=== PATIENT | female | born 1965 | race Caucasian/White ===

== ENCOUNTER 2017-01-11 11:32 | Emergency (ER) | payer OTHER ==
--- NOTE | 2017-01-11 12:26 | ED ---
General Adult HPI - General Chief complaint: Urogenital Stated complaint: COUGHING, JEROD, POSS UTI Time Seen by Provider: 01/11/17 12:11 Source: patient, RN notes reviewed Mode of arrival: ambulatory Limitations: no limitations - History of Present Illness Initial comments: Patient 51-year-old female who presents emergency room today with chief complaint of symptoms of dysuria and possible urinary tract infection. She does admit that she's had symptoms on and off over the last 6 months. She states she was treated once with antibiotics. She states she is a daily drinker and believes that the antibiotics that were 4. Patient does admit to increased frequency with burning on urination. She denies any other complaints or symptoms at this time. Patient denies any recent fever, chills, shortness of breath, chest pain, back pain, abdominal pain, nausea or vomiting, numbness or tingling, constipation or diarrhea, headaches or visual changes, or any other complaints. - Related Data Home Medications Medication Instructions Recorded Confirmed HYDROcodone/APAP 10-325MG [[place] 1 tab PO Q8H PRN 01/11/17 01/11/17 10-325] Previous Rx's Medication Instructions Recorded Nitrofurantoin Monohyd/M-Cryst 100 mg PO Q12HR #14 cap 01/11/17 [Macrobid] Allergies Allergy/AdvReac Type Severity Reaction Status Date / Time No Known Allergies Allergy Verified 01/11/17 13:11 Review of Systems ROS Statement: Those systems with pertinent positive or pertinent negative responses have been documented in the HPI. ROS Other: All systems not noted in ROS Statement are negative. Past Medical History Additional Past Medical History / Comment(s): etoh abuse History of Any Multi-Drug Resistant Organisms: None Reported Past Surgical History: Orthopedic Surgery Additional Past Surgical History / Comment(s): wrist/arm surg Past Psychological History: Bipolar Smoking Status: Current every day smoker Past Alcohol Use History: Abuse, Daily Past Drug Use History: None Reported General Exam - General Exam Comments Initial Comments: General: The patient is awake and alert, in no distress, and does not appear acutely ill. Eye: Pupils are equal, round and reactive to light, extra-ocular movements are intact. No nystagmus. There is normal conjunctiva bilaterally. No signs of icterus. Ears, nose, mouth and throat: There are moist mucous membranes and no oral lesions. Neck: The neck is supple, there is no tenderness or JVD. Cardiovascular: There is a regular rate and rhythm. No murmur, rub or gallop is appreciated. Respiratory: Lungs are clear to auscultation, respirations are non-labored, breath sounds are equal. No wheezes, stridor, rales, or rhonchi. Gastrointestinal: Soft, non-distended, non-tender abdomen without masses or organomegaly noted. There is no rebound or guarding present. No CVA tenderness. Bowel sounds are unremarkable. Musculoskeletal: Normal ROM, no tenderness. Strength 5/5. Sensation intact. Pulses equal bilaterally 2+. Neurological: A&O x 3. CN II-XII intact, There are no obvious motor or sensory deficits. Coordination appears grossly intact. Speech is normal. Skin: Skin is warm and dry and no rashes or lesions are noted. Psychiatric: Cooperative, appropriate mood & affect, normal judgment. Limitations: no limitations Course Vital Signs 01/11/17 01/11/17 01/11/17 11:54 12:55 14:23 Temperature 98.5 F 98.6 F Pulse Rate 109 H 90 72 Respiratory 18 16 Rate Blood Pressure 134/76 136/71 O2 Sat by Pulse 97 100 Oximetry 01/11/17 01/11/17 14:34 15:30 Temperature 98.5 F Pulse Rate 74 84 Respiratory 18 Rate Blood Pressure 148/77 O2 Sat by Pulse 97 Oximetry Medical Decision Making - Medical Decision Making Patient's x-ray reviewed shows no sign of pneumonia. No other acute abnormalities. CT of the abdomen and pelvis reveals a ovarian cyst. She does admit that she's had these in the past. She admits to dysuria. States she's had burning on urination. Was discussed about cystitis. Her urinalysis shows 40 red cells. Remaining labs reviewed. She will be placed on antibiotics cover for cystitis. She is advised follow-up family doctor over the next 2 days return here to emergency room if any symptoms increase or worsen or for any other concerns. - Lab Data Result diagrams: 01/11/17 14:10 01/11/17 14:10 Lab Results 01/11/17 01/11/17 01/11/17 Range/Units 12:50 14:10 14:10 WBC 10.4 (3.8-10.6) k/uL RBC 4.72 (3.80-5.40) m/uL Hgb 16.0 (11.4-16.0) gm/dL Hct 46.2 H (34.0-46.0) % MCV 97.8 (80.0-100.0) fL MCH 33.9 (25.0-35.0) pg MCHC 34.7 (31.0-37.0) g/dL RDW 14.5 (11.5-15.5) % Plt Count 199 (150-450) k/uL Neutrophils % 77 % Lymphocytes % 14 % Monocytes % 6 % Eosinophils % 1 % Basophils % 1 % Neutrophils # 8.0 H (1.3-7.7) k/uL Lymphocytes # 1.5 (1.0-4.8) k/uL Monocytes # 0.6 (0-1.0) k/uL Eosinophils # 0.1 (0-0.7) k/uL Basophils # 0.1 (0-0.2) k/uL Sodium (137-145) mmol/L Potassium (3.5-5.1) mmol/L Chloride (98-107) mmol/L Carbon Dioxide (22-30) mmol/L Anion Gap mmol/L BUN (7-17) mg/dL Creatinine (0.52-1.04) mg/dL Est GFR (MDRD) Af Amer (>60 ml/min/1.73 sqM) Est GFR (MDRD) Non-Af (>60 ml/min/1.73 sqM) Glucose (74-99) mg/dL Calcium (8.4-10.2) mg/dL Total Bilirubin (0.2-1.3) mg/dL AST (14-36) U/L ALT (9-52) U/L Alkaline Phosphatase (38-126) U/L Total Creatine Kinase 92 (30-135) U/L CK-MB (CK-2) 1.7 (0.0-2.4) ng/mL CK-MB (CK-2) Rel Index 1.8 Troponin I <0.012 (0.000-0.034) ng/mL Total Protein (6.3-8.2) g/dL Albumin (3.5-5.0) g/dL Urine Color Yellow Urine Appearance Clear (Clear) Urine pH 5.5 (5.0-8.0) Ur Specific [place] 1.018 (1.001-1.035) Urine Protein Trace H (Negative) Urine Glucose (UA) Negative (Negative) Urine Ketones Negative (Negative) Urine Blood Moderate H (Negative) Urine Nitrite Negative (Negative) Urine Bilirubin Negative (Negative) Urine Urobilinogen <2.0 (<2.0) mg/dL Ur Leukocyte Esterase Negative (Negative) Urine RBC 48 H (0-5) /hpf Urine WBC 2 (0-5) /hpf Ur Squamous Epith Cells 2 (0-4) /hpf Urine Mucus Occasional H (None) /hpf 01/11/17 Range/Units 14:10 WBC (3.8-10.6) k/uL RBC (3.80-5.40) m/uL Hgb (11.4-16.0) gm/dL Hct (34.0-46.0) % MCV (80.0-100.0) fL MCH (25.0-35.0) pg MCHC (31.0-37.0) g/dL RDW (11.5-15.5) % Plt Count (150-450) k/uL Neutrophils % % Lymphocytes % % Monocytes % % Eosinophils % % Basophils % % Neutrophils # (1.3-7.7) k/uL Lymphocytes # (1.0-4.8) k/uL Monocytes # (0-1.0) k/uL Eosinophils # (0-0.7) k/uL Basophils # (0-0.2) k/uL Sodium 145 (137-145) mmol/L Potassium 4.3 (3.5-5.1) mmol/L Chloride 111 H (98-107) mmol/L Carbon Dioxide 23 (22-30) mmol/L Anion Gap 11 mmol/L BUN 13 (7-17) mg/dL Creatinine 0.60 (0.52-1.04) mg/dL Est GFR (MDRD) Af Amer >60 (>60 ml/min/1.73 sqM) Est GFR (MDRD) Non-Af >60 (>60 ml/min/1.73 sqM) Glucose 84 (74-99) mg/dL Calcium 9.6 (8.4-10.2) mg/dL Total Bilirubin 0.7 (0.2-1.3) mg/dL AST 36 (14-36) U/L ALT 41 (9-52) U/L Alkaline Phosphatase 140 H (38-126) U/L Total Creatine Kinase (30-135) U/L CK-MB (CK-2) (0.0-2.4) ng/mL CK-MB (CK-2) Rel Index Troponin I (0.000-0.034) ng/mL Total Protein 7.0 (6.3-8.2) g/dL Albumin 4.3 (3.5-5.0) g/dL Urine Color Urine Appearance (Clear) Urine pH (5.0-8.0) Ur Specific [place] (1.001-1.035) Urine Protein (Negative) Urine Glucose (UA) (Negative) Urine Ketones (Negative) Urine Blood (Negative) Urine Nitrite (Negative) Urine Bilirubin (Negative) Urine Urobilinogen (<2.0) mg/dL Ur Leukocyte Esterase (Negative) Urine RBC (0-5) /hpf Urine WBC (0-5) /hpf Ur Squamous Epith Cells (0-4) /hpf Urine Mucus (None) /hpf Disposition Clinical Impression: Cystitis, Cough Disposition: HOME SELF-CARE Condition: Good Instructions: Urinary Tract Infection in Women (ED) Additional Instructions: Please use medication as discussed. Please follow-up with family doctor in the next 2 days. Please return to emergency room if the symptoms increase or worsen or for any other concerns. Prescriptions: Nitrofurantoin Monohyd/M-Cryst [Macrobid] 100 mg PO Q12HR #14 cap Referrals: Alayna Burnham MD [Primary Care Provider] - 1-2 days Time of Disposition: 16:07
[2017-01-11 13:26] LABS: Appearance,Urine Clear (Clear); Bilirubin,Urine Negative (Negative); Glucose,Urine (UA) Negative (Negative); Ketones,Urine Negative (Negative); Leukocyte Esterase,Urine Negative (Negative); Mucus,Urine Occasional /hpf; Nitrite,Urine Negative (Negative); PH, Urine 5.5 (5.0-8.0); Particle Count 3511; Protein,Urine Trace (Negative); RBC,Urine 48 /hpf (0-5); Specific Gravity,Urine 1.018 (1.001-1.035); Squamous Epithelial Cell,Urine 2 /hpf (0-4); UA Billing (MACRO vs. MICRO) MICRO; Urobilinogen,Urine <2.0 mg/dL (<2.0); WBC,Urine 2 /hpf (0-5)
[2017-01-11] MEDS ORDERED: IPRATROPIUM-ALBUTEROL 3 ML NEB INHALATION STA (13:42)
[2017-01-11 14:27] LABS: Basophils # (A) 0.1 k/uL (0-0.2); Basophils % (A) 1 %; CHCM 34.9; Eosinophils # (A) 0.1 k/uL (0-0.7); Eosinophils % (A) 1 %; HCT 46.2 % (34.0-46.0); HDW 2.62; Luc % (Auto) 1; Lymphocytes # (A) 1.5 k/uL (1.0-4.8); Lymphocytes % (A) 14 %; MCH 33.9 pg (25.0-35.0); MCHC 34.7 g/dL (31.0-37.0); MCV 97.8 fL (80.0-100.0); Mean Platelet Volume 7.9; Monocytes # (A) 0.6 k/uL (0-1.0); Monocytes % (A) 6 %; Neutrophils % (A) 77 %; RBC 4.72 m/uL (3.80-5.40); RDW 14.5 % (11.5-15.5); WBC 10.4 k/uL (3.8-10.6); WBC (Perox) 9.72
[2017-01-11 14:36] LABS: ALT 41 U/L (9-52); AST 36 U/L (14-36); Alkaline Phosphatase 140 U/L (38-126); Anion Gap 11 mmol/L; Blood Urea Nitrogen 13 mg/dL (7-17); Calcium 9.6 mg/dL (8.4-10.2); Carbon Dioxide 23 mmol/L (22-30); Chloride 111 mmol/L (98-107); Glucose 84 mg/dL (74-99); Non-African American GFR(MDRD) >60 (>60 ml/min/1.73 sqM); Potassium 4.3 mmol/L (3.5-5.1); Sodium 145 mmol/L (137-145); Total Bilirubin 0.7 mg/dL (0.2-1.3)
[2017-01-11 14:45] LABS: Creatine Kinase 92 U/L (30-135)
[2017-01-11 14:58] LABS: Creatine Kinase MB 1.7 ng/mL (0.0-2.4); Troponin I <0.012 ng/mL (0.000-0.034)
--- NOTE | 2017-01-11 15:03 | XR ---
EXAMINATION TYPE: XR chest 2V DATE OF EXAM: 01/11/2017 COMPARISON: NONE HISTORY: Cough TECHNIQUE: Frontal and lateral views of the chest are obtained. FINDINGS: Heart and mediastinum are normal. Lungs are clear. Costophrenic angles are clear. There ar e no hilar masses. Bony thorax is intact. IMPRESSION: Normal chest
--- NOTE | 2017-01-11 15:50 | CT ---
EXAMINATION TYPE: CT abdomen pelvis wo con DATE OF EXAM: 01/11/2017 COMPARISON: NONE HISTORY: Hematuria and burning with urination. CT DLP: 315.60 mGycm Automated exposure control for dose reduction was used. TECHNIQUE: Helical acquisition of images was performed from the lung bases through the pelvis. FINDINGS: Lung bases are clear of consolidation. There is no pleural effusion. Liver shows no focal defect. Spleen and pancreas appear normal. Gallbladder appears normal. There is no adrenal mass. Kidneys have normal size and contour. There is no hydronephrosis. Ureters a re not dilated. Bladder distends smoothly. There is no retroperitoneal adenopathy. There is a 7 x 5 c m cyst in the pelvis on the right side. This is probably ovarian cyst. Appendix is not definitely seen. There is no sign of appendicitis. Fecal pattern is normal. There is no ascites. I see no bony destructive process. IMPRESSION: LARGE RIGHT OVARIAN CYST. NO SIGN OF APPENDICITIS. NO EVIDENCE OF RENAL OBSTRUCTION.
[2017-01-11 16:01] VITALS: BP 148/77; PULSE 84; RESP 18; TEMP 98.5
== END 2017-01-11 16:15 | disposition home or self-care (01) ==
LOC: EC 11:32
DX: N30.90 Cystitis, unspecified without hematuria (principal); R05 Cough; F17.200 Nicotine dependence, unspecified, uncomplicated
CPT/HCPCS: 36415; 71020; 74176; 80053; 81001; 82550; 82553; 84484; 85025; 87086; 93005; 94640; 99284

== ENCOUNTER 2017-03-05 08:55 | Emergency (ER) | payer MEDICARE, OTHER ==
[2017-03-05] MEDS ORDERED: ASPIRIN 81 MG CHEW PO STA (09:13)
[2017-03-05] MEDS ORDERED: KETOROLAC 30 MG/ML 1 ML VIAL IVP STA (09:13)
[2017-03-05] MEDS ORDERED: SODIUM CHLORIDE 0.9% 1,000 ML IV STA ×2 (09:13)
--- NOTE | 2017-03-05 09:18 | ED ---
Fall HPI - General Chief Complaint: Fall Stated Complaint: fall, knee pain Time Seen by Provider: 03/05/17 09:06 Source: patient, RN notes reviewed, old records reviewed Mode of arrival: wheelchair - History of Present Illness Initial Comments: This is a 51-year-old feel presenting to the emergency Department chief complaint of right hip, knee and foot pain after falling off the ladder. Patient reports she was standing approximately 5 feet high, when she fell off the ladder and landed on her right leg. Patient reports that she also some abrasions over her arms and legs but denies any arm, back or abdominal pain. Patient reports she did not hit her head she is not on any blood thinners. She is a smoker. She also reports that she's had chest pain intermittently for the past 6 weeks. Patient reports that it seems to calm and last for a few days and then will slowly subside. Patient states that she has no previous cardiac history. - Related Data Previous Rx's Medication Instructions Recorded Acetaminophen-Codeine 300-30mg 1 tab PO Q6H PRN #12 tablet 03/05/17 [Tylenol #3] Allergies Allergy/AdvReac Type Severity Reaction Status Date / Time No Known Allergies Allergy Verified 03/05/17 09:10 Review of Systems ROS Statement: Those systems with pertinent positive or pertinent negative responses have been documented in the HPI. ROS Other: All systems not noted in ROS Statement are negative. Past Medical History Past Medical History: Hypertension Additional Past Medical History / Comment(s): etoh abuse History of Any Multi-Drug Resistant Organisms: None Reported Past Surgical History: Orthopedic Surgery Additional Past Surgical History / Comment(s): wrist/arm surg left side Past Psychological History: Bipolar Smoking Status: Current every day smoker Past Alcohol Use History: Abuse, Daily Past Drug Use History: None Reported General Exam - General Exam Comments Initial Comments: This is a 51-year-old female. Patient does appear to be in some discomfort. Limitations: no limitations General appearance: alert, in no apparent distress Head exam: Present: atraumatic, normocephalic, normal inspection Eye exam: Present: normal appearance, PERRL, EOMI. Absent: scleral icterus, conjunctival injection, periorbital swelling ENT exam: Present: normal exam, mucous membranes moist Neck exam: Present: normal inspection. Absent: tenderness, meningismus, lymphadenopathy Respiratory exam: Present: normal lung sounds bilaterally, wheezes (Course lung sounds.). Absent: respiratory distress, rales, rhonchi, stridor Cardiovascular Exam: Present: regular rate, normal rhythm, normal heart sounds. Absent: systolic murmur, diastolic murmur, rubs, gallop, clicks GI/Abdominal exam: Present: soft, normal bowel sounds. Absent: distended, tenderness, guarding, rebound, rigid Extremities exam: Present: normal inspection, full ROM, normal capillary refill. Absent: tenderness, pedal edema, joint swelling, calf tenderness Right Hip exam: Present: normal inspection, full ROM, tenderness (Over IT band), ecchymosis (Ecchymosis over the lateral hip.) Upper Leg exam: Present: normal inspection, full ROM Knee exam: Present: full ROM, ecchymosis (A few areas of ecchymosis over the knee each measuring 1-2 cm.). Absent: normal inspection Lower Leg exam: Present: normal inspection, full ROM Ankle exam: Present: normal inspection, full ROM Foot/Toe exam: Present: normal inspection, tenderness (Over her fourth and fifth malleolus.). Absent: full ROM Neurovascular tendon exam: Present: no vascular compromise Gait: observed and normal Back exam: Present: normal inspection Neurological exam: Present: alert, oriented X3, CN II-XII intact Psychiatric exam: Present: normal affect, normal mood Skin exam: Present: warm, dry, intact, normal color. Absent: rash Course Vital Signs 03/05/17 03/05/17 08:57 10:46 Temperature 99.1 F Pulse Rate 100 88 Respiratory 22 16 Rate Blood Pressure 150/88 143/79 O2 Sat by Pulse 98 96 Oximetry Medical Decision Making - Lab Data Result diagrams: 03/05/17 10:21 03/05/17 10:21 Lab Results 03/05/17 03/05/17 03/05/17 Range/Units 10:21 10:21 10:21 WBC 9.2 (3.8-10.6) k/uL RBC 4.81 (3.80-5.40) m/uL Hgb 16.0 (11.4-16.0) gm/dL Hct 47.5 H (34.0-46.0) % MCV 98.7 (80.0-100.0) fL MCH 33.2 (25.0-35.0) pg MCHC 33.7 (31.0-37.0) g/dL RDW 15.1 (11.5-15.5) % Plt Count 221 (150-450) k/uL Neutrophils % 80 % Lymphocytes % 11 % Monocytes % 6 % Eosinophils % 1 % Basophils % 1 % Neutrophils # 7.3 (1.3-7.7) k/uL Lymphocytes # 1.0 (1.0-4.8) k/uL Monocytes # 0.5 (0-1.0) k/uL Eosinophils # 0.1 (0-0.7) k/uL Basophils # 0.1 (0-0.2) k/uL PT (9.0-12.0) sec INR (<1.2) APTT (22.0-30.0) sec Sodium 144 (137-145) mmol/L Potassium 4.2 (3.5-5.1) mmol/L Chloride 112 H (98-107) mmol/L Carbon Dioxide 18 L (22-30) mmol/L Anion Gap 14 mmol/L BUN 8 (7-17) mg/dL Creatinine 0.70 (0.52-1.04) mg/dL Est GFR (MDRD) Af Amer >60 (>60 ml/min/1.73 sqM) Est GFR (MDRD) Non-Af >60 (>60 ml/min/1.73 sqM) Glucose 69 L (74-99) mg/dL Calcium 9.5 (8.4-10.2) mg/dL Magnesium 1.7 (1.6-2.3) mg/dL Total Bilirubin 0.8 (0.2-1.3) mg/dL AST 65 H (14-36) U/L ALT 81 H (9-52) U/L Alkaline Phosphatase 196 H (38-126) U/L Total Creatine Kinase 111 (30-135) U/L CK-MB (CK-2) 1.5 (0.0-2.4) ng/mL CK-MB (CK-2) Rel Index 1.4 Troponin I <0.012 (0.000-0.034) ng/mL NT-Pro-B Natriuret Pep pg/mL Total Protein 7.3 (6.3-8.2) g/dL Albumin 4.5 (3.5-5.0) g/dL Amylase 32 (30-110) U/L Lipase 74 (23-300) U/L Serum Alcohol 95 mg/dL 03/05/17 03/05/17 Range/Units 10:21 10:21 WBC (3.8-10.6) k/uL RBC (3.80-5.40) m/uL Hgb (11.4-16.0) gm/dL Hct (34.0-46.0) % MCV (80.0-100.0) fL MCH (25.0-35.0) pg MCHC (31.0-37.0) g/dL RDW (11.5-15.5) % Plt Count (150-450) k/uL Neutrophils % % Lymphocytes % % Monocytes % % Eosinophils % % Basophils % % Neutrophils # (1.3-7.7) k/uL Lymphocytes # (1.0-4.8) k/uL Monocytes # (0-1.0) k/uL Eosinophils # (0-0.7) k/uL Basophils # (0-0.2) k/uL PT 10.8 (9.0-12.0) sec INR 1.1 (<1.2) APTT 24.2 (22.0-30.0) sec Sodium (137-145) mmol/L Potassium (3.5-5.1) mmol/L Chloride (98-107) mmol/L Carbon Dioxide (22-30) mmol/L Anion Gap mmol/L BUN (7-17) mg/dL Creatinine (0.52-1.04) mg/dL Est GFR (MDRD) Af Amer (>60 ml/min/1.73 sqM) Est GFR (MDRD) Non-Af (>60 ml/min/1.73 sqM) Glucose (74-99) mg/dL Calcium (8.4-10.2) mg/dL Magnesium (1.6-2.3) mg/dL Total Bilirubin (0.2-1.3) mg/dL AST (14-36) U/L ALT (9-52) U/L Alkaline Phosphatase (38-126) U/L Total Creatine Kinase (30-135) U/L CK-MB (CK-2) (0.0-2.4) ng/mL CK-MB (CK-2) Rel Index Troponin I (0.000-0.034) ng/mL NT-Pro-B Natriuret Pep 113 pg/mL Total Protein (6.3-8.2) g/dL Albumin (3.5-5.0) g/dL Amylase (30-110) U/L Lipase (23-300) U/L Serum Alcohol mg/dL 03/05/17 11:41 EKG shows sinus rhythm. Nonspecific ST segment eye. Ventricularly of 89 bpm. VA interval 160 ms. QS duration 94 ms. QT QTc 382/persist for most x-ray nonspecific T-wave inversion. Disposition Clinical Impression: Fall, Atypical chest pain, Fracture of metatarsal of right foot, closed, Elevated ETOH level Condition: Good Instructions: Fall Prevention for Older Adults (ED) Additional Instructions: Patient has a follow-up with primary care provider. Follow-up with your orthopedic physician. Return to the emergency department if any alarming signs or symptoms occur. Patient needs to remain in the splint until seen by orthopedics. Ambulate with crutches. Prescriptions: Acetaminophen-Codeine 300-30mg [Tylenol #3] 1 tab PO Q6H PRN #12 tablet PRN Reason: Pain Referrals: Alayna Burnham MD [Primary Care Provider] - 1-2 days Tadeo Wing DO [Doctor of Osteopathic Medicine] - 1-2 days Time of Disposition: 11:38
--- NOTE | 2017-03-05 09:59 | XR ---
EXAMINATION TYPE: XR chest 2V DATE OF EXAM: 03/05/2017 COMPARISON: 01/21/2017 HISTORY: Fall and pain. TECHNIQUE: Frontal and lateral views of the chest are obtained. FINDINGS: There is no focal air space opacity, pleural effusion, or pneumothorax seen. Pulmonary per inflation and flattening of the diaphragms as well as increased anterior posterior diameter of the c hest indicate underlying degree of pulmonary emphysema. The cardiac silhouette size is within normal limits. The osseous structures are intact. IMPRESSION: 1. No acute cardiopulmonary process. 2. Sequela of COPD.
--- NOTE | 2017-03-05 10:04 | XR ---
EXAMINATION TYPE: XR foot complete RT DATE OF EXAM: 03/05/2017 CLINICAL HISTORY: Pain after fall TECHNIQUE: Frontal, lateral, and oblique images of the right foot are obtained. COMPARISON: None FINDINGS: There is an obliquely oriented minimally displaced fracture of the distal diaphysis of the third metatarsal. Distal fracture fragment is displaced approximately 2 mm laterally. Midfoot dorsal soft tissue swelling is associated. No second fracture, subcutaneous emphysema or radiopaque foreign body is appreciated. IMPRESSION: Minimally displaced obliquely oriented fracture of the distal diaphysis of the third meta tarsal with overlying soft tissue swelling of the dorsum of midfoot.
--- NOTE | 2017-03-05 10:08 | XR ---
EXAMINATION TYPE: XR knee complete RT DATE OF EXAM: 03/05/2017 COMPARISON: NONE HISTORY: Pain TECHNIQUE: Four views are submitted. FINDINGS: Mild narrowing the joint spaces. No erosive change. Large spur extending off the upper margin of the patella.. Osseous structures are intact. No acute fracture seen. IMPRESSION: 1. No acute fracture or dislocation.
--- NOTE | 2017-03-05 10:09 | XR ---
EXAMINATION TYPE: XR Hip Complete RT DATE OF EXAM: 03/05/2017 COMPARISON: NONE HISTORY: Pain TECHNIQUE: 2 views submitted FINDINGS: There is no evidence of erosive change or acute fracture. Large spur extending off the greater trochanter. There is mild concentric narrowing of joint space. D iffuse osteopenia noted. IMPRESSION: 1. No evidence of acute fracture or dislocation.
[2017-03-05] MEDS ORDERED: MORPHINE SULFATE 4 MG/ML SYRINGE IVP STA (10:32)
[2017-03-05 10:35] LABS: Basophils # (A) 0.1 k/uL (0-0.2); Basophils % (A) 1 %; CH 34.3; CHCM 34.9; Eosinophils # (A) 0.1 k/uL (0-0.7); Eosinophils % (A) 1 %; HCT 47.5 % (34.0-46.0); HDW 2.58; Luc # (Auto) 0.12; Luc % (Auto) 1; Lymphocytes % (A) 11 %; MCH 33.2 pg (25.0-35.0); MCHC 33.7 g/dL (31.0-37.0); MCV 98.7 fL (80.0-100.0); Mean Platelet Volume 7.8; Monocytes # (A) 0.5 k/uL (0-1.0); Monocytes % (A) 6 %; Neutrophils # (A) 7.3 k/uL (1.3-7.7); Neutrophils % (A) 80 %; RBC 4.81 m/uL (3.80-5.40); RDW 15.1 % (11.5-15.5); WBC 9.2 k/uL (3.8-10.6); WBC (Perox) 8.42
[2017-03-05 10:40] LABS: INR 1.1 (<1.2); Partial Thromboplastin Time 24.2 sec (22.0-30.0); Prothrombin Time 10.8 sec (9.0-12.0)
[2017-03-05 10:48] LABS: ALT 81 U/L (9-52); AST 65 U/L (14-36); Alkaline Phosphatase 196 U/L (38-126); Amylase 32 U/L (30-110); Anion Gap 14 mmol/L; Blood Urea Nitrogen 8 mg/dL (7-17); Calcium 9.5 mg/dL (8.4-10.2); Carbon Dioxide 18 mmol/L (22-30); Chloride 112 mmol/L (98-107); Glucose 69 mg/dL (74-99); Magnesium 1.7 mg/dL (1.6-2.3); Non-African American GFR(MDRD) >60 (>60 ml/min/1.73 sqM); Potassium 4.2 mmol/L (3.5-5.1); Sodium 144 mmol/L (137-145); Total Bilirubin 0.8 mg/dL (0.2-1.3); Total Protein 7.3 g/dL (6.3-8.2)
[2017-03-05 10:50] LABS: Alcohol 95 mg/dL
[2017-03-05 10:52] LABS: Creatine Kinase 111 U/L (30-135)
[2017-03-05 11:05] LABS: Creatine Kinase MB 1.5 ng/mL (0.0-2.4); Troponin I <0.012 ng/mL (0.000-0.034)
[2017-03-05 11:51] VITALS: BP 134/85; PULSE 91; RESP 18; TEMP 98.4
== END 2017-03-05 11:50 ==
LOC: EC 08:55
DX: S92.331A Displaced fracture of third metatarsal bone, right foot, initial encounter for closed fracture (principal); R07.89 Other chest pain; R74.8 Abnormal levels of other serum enzymes; F17.200 Nicotine dependence, unspecified, uncomplicated; W19.XXXA Unspecified fall, initial encounter
CPT/HCPCS: 36415; 93005; 83880; 80053; 82150; 82550; 82553; 83690; 83735; 84484; 85025; 85610; 85730; 80320; 71020; 73502; 73562; 73630; 99284; 96374; 96375; 96361; J2270; J1885

== ENCOUNTER 2017-04-27 16:43 | Emergency (ER) | payer MEDICARE, OTHER ==
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
[2017-04-27 18:38] VITALS: BP 132/86; PULSE 94; RESP 20; TEMP 98
== END 2017-04-27 18:38 | disposition home or self-care (01) ==
LOC: EC 16:43
DX: T24.011A Burn of unspecified degree of right thigh, initial encounter (principal); T21.05XA Burn of unspecified degree of buttock, initial encounter; T31.0 Burns involving less than 10% of body surface; F17.200 Nicotine dependence, unspecified, uncomplicated; X02.8XXA Other exposure to controlled fire in building or structure, initial encounter; Y93.B2 Activity, push-ups, pull-ups, sit-ups
CPT/HCPCS: 99283

== ENCOUNTER 2020-11-05 12:45 | Emergency (ER) | payer MEDICARE, OTHER ==
[2020-11-05 12:59] VITALS: RESP 18
[2020-11-05] MEDS ORDERED: ONDANSETRON 4 MG/2 ML VIAL IVP STA (13:56)
--- NOTE | 2020-11-05 13:58 | ED ---
Nausea/Vomiting/Diarrhea HPI - General Chief complaint: Nausea/Vomiting/Diarrhea Stated complaint: ABD pain,Vomiting Time Seen by Provider: 11/05/20 13:44 Source: patient, RN notes reviewed Mode of arrival: ambulatory Limitations: no limitations - History of Present Illness Initial comments: Patient is a 55-year-old female that presents to the emergency department complaining of nausea starting this morning. She notes that she has not vomited yet just having dry heaves. She notes that she drank some pop and has had several shots of alcohol this morning prior to arrival. She notes that she came in to get evaluated because 2 years ago they said there is too much blood in her kidneys. She was in no apparent distress or pain while sitting in bed during exam and interview. She denied any abdominal discomfort pain chest pain shortness of breath headache vomiting diarrhea constipation fever fatigue chills hematochezia, melena and hematemesis - Related Data Previous Rx's Medication Instructions Recorded Acetaminophen-Codeine 300-30mg 1 tab PO Q6H PRN #12 tablet 03/05/17 [Tylenol #3] SILVER sulfADIAZINE CREAM 1 applic TOPICAL BID #1 tub 04/27/17 [Silvadene Cream] Allergies Allergy/AdvReac Type Severity Reaction Status Date / Time No Known Allergies Allergy Verified 11/05/20 12:55 Review of Systems ROS Statement: Those systems with pertinent positive or pertinent negative responses have been documented in the HPI. ROS Other: All systems not noted in ROS Statement are negative. Past Medical History Past Medical History: Hypertension Additional Past Medical History / Comment(s): etoh abuse History of Any Multi-Drug Resistant Organisms: None Reported Past Surgical History: Orthopedic Surgery Additional Past Surgical History / Comment(s): wrist/arm surg left side Past Psychological History: Bipolar, Depression Smoking Status: Current every day smoker Past Alcohol Use History: Daily, Heavy Past Drug Use History: None Reported General Exam Limitations: no limitations General appearance: alert, in no apparent distress, other (Patient smells of alcohol.) Head exam: Present: atraumatic, normocephalic, normal inspection Eye exam: Present: normal appearance, PERRL, EOMI. Absent: scleral icterus, conjunctival injection, periorbital swelling Neck exam: Present: normal inspection. Absent: tenderness, meningismus, lymphadenopathy Respiratory exam: Present: normal lung sounds bilaterally. Absent: respiratory distress, wheezes, rales, rhonchi, stridor Cardiovascular Exam: Present: regular rate, normal rhythm, normal heart sounds. Absent: systolic murmur, diastolic murmur, rubs, gallop, clicks GI/Abdominal exam: Present: soft, normal bowel sounds. Absent: distended, tenderness, guarding, rebound, rigid Extremities exam: Present: normal inspection, full ROM, normal capillary refill. Absent: tenderness, pedal edema, joint swelling, calf tenderness Neurological exam: Present: alert, oriented X3, CN II-XII intact Psychiatric exam: Present: normal affect, normal mood Skin exam: Present: warm, dry, intact, normal color. Absent: rash Course Vital Signs 11/05/20 12:55 Temperature 97.7 F Pulse Rate 110 H Respiratory 18 Rate Blood Pressure 140/84 O2 Sat by Pulse 95 Oximetry Medical Decision Making - Medical Decision Making 55-year-old female complaining of nausea since this morning. Labs, 4 mg Zofran, KUB ordered. KUB: No acute abdominal process. Labs unremarkable. Case discussed with Dr. Ulrich, patient can discharge home. - Lab Data Result diagrams: 11/05/20 14:05 11/05/20 14:05 Lab Results 11/05/20 11/05/20 11/05/20 Range/Units 14:05 14:05 14:05 WBC 6.6 (3.8-10.6) k/uL RBC 4.62 (3.80-5.40) m/uL Hgb 14.6 (11.4-16.0) gm/dL Hct 43.8 (34.0-46.0) % MCV 94.7 (80.0-100.0) fL MCH 31.5 (25.0-35.0) pg MCHC 33.3 (31.0-37.0) g/dL RDW 14.6 (11.5-15.5) % Plt Count 252 (150-450) k/uL MPV 7.4 Neutrophils % 68 % Lymphocytes % 21 % Monocytes % 6 % Eosinophils % 2 % Basophils % 2 % Neutrophils # 4.5 (1.3-7.7) k/uL Lymphocytes # 1.4 (1.0-4.8) k/uL Monocytes # 0.4 (0-1.0) k/uL Eosinophils # 0.2 (0-0.7) k/uL Basophils # 0.1 (0-0.2) k/uL Sodium 140 (137-145) mmol/L Potassium 4.5 (3.5-5.1) mmol/L Chloride 102 (98-107) mmol/L Carbon Dioxide 19 L (22-30) mmol/L Anion Gap 19 mmol/L BUN 23 H (7-17) mg/dL Creatinine 0.79 (0.52-1.04) mg/dL Est GFR (CKD-EPI)AfAm >90 (>60 ml/min/1.73 sqM) Est GFR (CKD-EPI)NonAf 85 (>60 ml/min/1.73 sqM) Glucose 73 L (74-99) mg/dL Calcium 10.5 H (8.4-10.2) mg/dL Total Bilirubin 0.6 (0.2-1.3) mg/dL AST 57 H (14-36) U/L ALT 61 H (4-34) U/L Alkaline Phosphatase 127 H (38-126) U/L Total Protein 7.9 (6.3-8.2) g/dL Albumin 5.0 (3.5-5.0) g/dL Amylase 42 (30-110) U/L Lipase 51 (23-300) U/L Urine Color Yellow Urine Appearance Clear (Clear) Urine pH 6.0 (5.0-8.0) Ur Specific [place] 1.027 (1.001-1.035) Urine Protein 1+ H (Negative) Urine Glucose (UA) Negative (Negative) Urine Ketones 4+ H (Negative) Urine Blood Small H (Negative) Urine Nitrite Negative (Negative) Urine Bilirubin Negative (Negative) Urine Urobilinogen 2.0 (<2.0) mg/dL Ur Leukocyte Esterase Negative (Negative) Urine RBC 1 (0-5) /hpf Urine WBC <1 (0-5) /hpf Ur Squamous Epith Cells 3 (0-4) /hpf Hyaline Casts 5 H (0-2) /lpf Urine Mucus Rare H (None) /hpf - Radiology Data Radiology results: report reviewed KUB: Nonspecific abdomen. Paucity of bowel gas can be seen with normal exam. Although enteritis or ileus would also be in the differential diagnosis. Disposition Clinical Impression: Dehydration, Nausea Disposition: HOME SELF-CARE Condition: Stable Instructions (If sedation given, give patient instructions): Acute Nausea and Vomiting (ED) Additional Instructions: Please return to the Emergency Department if symptoms worsen or any other concerns. Increase oral fluid intake mostly water, Gatorade, juices try to avoid alcohol as it can cause sugar abnormalities issues. Follow-up primary care in 3-5 days. Is patient prescribed a controlled substance at d/c from ED?: No Referrals: None,Stated [Primary Care Provider] - 1-2 days Time of Disposition: 15:09
[2020-11-05 14:13] LABS: Basophils # (A) 0.1 k/uL (0-0.2); Basophils % (A) 2 %; Eosinophils # (A) 0.2 k/uL (0-0.7); Eosinophils % (A) 2 %; HCT 43.8 % (34.0-46.0); HGB 14.6 gm/dL (11.4-16.0); Lymphocytes # (A) 1.4 k/uL (1.0-4.8); Lymphocytes % (A) 21 %; MCH 31.5 pg (25.0-35.0); MCHC 33.3 g/dL (31.0-37.0); MCV 94.7 fL (80.0-100.0); Mean Platelet Volume 7.4; Monocytes # (A) 0.4 k/uL (0-1.0); Monocytes % (A) 6 %; Neutrophils # (A) 4.5 k/uL (1.3-7.7); Neutrophils % (A) 68 %; Platelet Count 252 k/uL (150-450); RBC 4.62 m/uL (3.80-5.40); RDW 14.6 % (11.5-15.5); WBC 6.6 k/uL (3.8-10.6)
[2020-11-05 14:25] LABS: ALT 61 U/L (4-34); AST 57 U/L (14-36); African American GFR (CKD) >90 (>60 ml/min/1.73 sqM); Alkaline Phosphatase 127 U/L (38-126); Amylase 42 U/L (30-110); Anion Gap 19 mmol/L; Blood Urea Nitrogen 23 mg/dL (7-17); Calcium 10.5 mg/dL (8.4-10.2); Carbon Dioxide 19 mmol/L (22-30); Chloride 102 mmol/L (98-107); Glucose 73 mg/dL (74-99); Lipase 51 U/L (23-300); Non-African American GFR(CKD) 85 (>60 ml/min/1.73 sqM); Potassium 4.5 mmol/L (3.5-5.1); Sodium 140 mmol/L (137-145); Total Bilirubin 0.6 mg/dL (0.2-1.3); Total Protein 7.9 g/dL (6.3-8.2)
--- NOTE | 2020-11-05 14:26 | XR ---
EXAMINATION TYPE: XR KUB DATE OF EXAM: 11/05/2020 COMPARISON: NONE HISTORY: Nausea, vomiting and pain TECHNIQUE: One view abdominal series FINDINGS: The osseous structures are intact. The bowel gas pattern is nonspecific. Lung bases are clear. Calc ification the left upper quadrant could related to splenic granuloma. IMPRESSION: 1. Nonspecific abdomen. Paucity of bowel gas can be seen with normal exam, although enteritis or ile us would also be in the differential diagnosis.
[2020-11-05 14:30] LABS: Appearance,Urine Clear (Clear); Bilirubin,Urine Negative (Negative); Blood,Urine Small (Negative); Color,Urine Yellow; Glucose,Urine (UA) Negative (Negative); Hyaline Casts,Urine 5 /lpf (0-2); Ketones,Urine 4+ (Negative); Leukocyte Esterase,Urine Negative (Negative); Mucus,Urine Rare /hpf; Nitrite,Urine Negative (Negative); Protein,Urine 1+ (Negative); RBC,Urine 1 /hpf (0-5); Specific Gravity,Urine 1.027 (1.001-1.035); Squamous Epithelial Cell,Urine 3 /hpf (0-4); WBC,Urine <1 /hpf (0-5)
[2020-11-05 15:43] VITALS: BP 137/87; PULSE 98; TEMP 98.3
== END 2020-11-05 15:42 | disposition home or self-care (01) ==
LOC: EC 12:45
DX: E86.0 Dehydration (principal); I10 Essential (primary) hypertension; F17.200 Nicotine dependence, unspecified, uncomplicated; F32.9 Major depressive disorder, single episode, unspecified
CPT/HCPCS: 36415; 80053; 82150; 83690; 85025; 81001; 74018; 99283; 96374; J2405